=== PATIENT | female | born 1940 | race American Indian/Alaskan Native ===

== ENCOUNTER 2018-12-02 09:46 | Emergency (ER) | payer MEDICARE ==
[2018-12-02 09:51] VITALS: BP 190/73
[2018-12-02] MEDS ORDERED: DECADRON IM ONE (10:27)
[2018-12-02] MEDS ORDERED: TORADOL IM ONE (10:27)
--- NOTE | 2018-12-02 10:30 | Emergency Department Report ---
ED Neck Pain/Injury HPI - General Chief Complaint: Neck Pain/Injury Stated Complaint: NECK PAIN Time Seen by Provider: 12/02/18 10:12 Source: patient, family Mode of arrival: Ambulatory Limitations: No Limitations - History of Present Illness Complaint: neck pain - Related Data Previous Rx's Medication Instructions Recorded Last Taken Type traMADol [Ultram 50 MG tab] 50 mg PO Q6HR PRN #12 tablet 12/02/18 Unknown Rx Allergies Allergy/AdvReac Type Severity Reaction Status Date / Time codeine AdvReac Nausea Verified 12/02/18 09:48 ED Review of Systems ROS: Stated complaint: NECK PAIN Other details as noted in HPI ED Past Medical Hx - Past Medical History Hx Hypertension: Yes Hx Diabetes: Yes Additional medical history: anemia - Surgical History Additional Surgical History: knee, neck, hip - Social History Smoking Status: Never Smoker Substance Use Type: None - Medications Home Medications: Home Medications Medication Instructions Recorded Confirmed Last Taken Type traMADol [Ultram 50 MG tab] 50 mg PO Q6HR PRN #12 tablet 12/02/18 Unknown Rx ED Physical Exam - General Limitations: No Limitations ED Course Vital Signs 12/02/18 09:48 Temperature 98 F Pulse Rate 90 Respiratory 20 Rate Blood Pressure 190/73 O2 Sat by Pulse 98 Oximetry ED Medical Decision Making - Radiology Data Radiology results: report reviewed IMPRESSION: There is no acute cervical spine fracture or subluxation seen. Anterior bony fusion from C3 to T1. Marked facet arthropathy as well as marked degenerative change involving atlantoaxial articulations. This document is electronically signed by Ruth Garcia MD., December 02 2018 12:57:24 PM ET - Medical Decision Making This is a 71-year-old female here report that she has pain to her neck and history of bone spur and she woke up this morning and in she is having pain to her neck of the back and sides. Neck exam was normal with normal range of motion and no edema. Patient had CT scan of her C-spine without contrast and shows no acute findings. This is discussed with patient that she was understanding. I also discussed with her she is to follow-up with her primary care doctor to get referral to neurosurgeon regarding her chronic neck pain and she voiced understanding. Subacute fusion C3 to T1 and degeneration seen. IMPRESSION: There is no acute cervical spine fracture or subluxation seen. Anterior bony fusion from C3 to T1. Marked facet arthropathy as well as marked degenerative change involving atlantoaxial articulations. This document is electronically signed by Ruht Garcia MD., December 02 2018 12:57:24 PM ET Assessment/plan 1: Neck musculoskeletal pain with degenerative disc disease and C 3 to T1 fusion -patient was given Toradol and Decadron emergency room and her pain is not up to 2/10. patient to follow-up with with her primary care physician in 2 days or return to the hospital for symptoms worsen. She is aware and discharged home with her family member. Patient discharged home in stable condition with prescription for Ultram. - Differential Diagnosis FX, Subluxation, msk pain Critical care attestation.: If time is entered above; I have spent that time in minutes in the direct care of this critically ill patient, excluding procedure time. ED Disposition Clinical Impression: Fusion of spine, cervical region, Musculoskeletal neck pain Degenerative arthritis of cervical spine Qualifiers: Spinal osteoarthritis complication: without myelopathy or radiculopathy Qualified Code(s): M47.812 - Spondylosis without myelopathy or radiculopathy, cervical region Disposition: DC-01 TO HOME OR SELFCARE Is pt being admited?: No Does the pt Need Aspirin: No Condition: Stable Instructions: Musculoskeletal Pain (ED), Degenerative Disc Disease (ED) Additional Instructions: Follow-up the primary care physician and 2-3 days regarding neck pain. Take tramadol for pain but please do not drive or operate heavy machinery while taking this medication. If condition worsens that he developed numbness or tingling to upper extremity please return to the emergency room [facility] Referrals: YOUR, primary care physician [Other] - 3-5 Days Forms: Accompanied Note
--- NOTE | 2018-12-02 12:00 | Cat Scan Report ---
PROCEDURE: CT CERVICAL SPINE WO CON TECHNIQUE: CT of the cervical spine performed. Axial images and coronal and sagittal reformatted imag es were obtained. HISTORY: neck pain COMPARISON: None FINDINGS: There is surgical anterior fusion at C3-4. There is also some bony fusion of vertebrae from C3 to T1 including ossification along the anterior longitudinal ligament. There is no vertebral subluxation. There is marked narrowing of facet joints throughout the cervical spine, left worse than right. There is also marked narrowing and degenerative change of C1-2 articula tions. C3-4 left-sided uncovertebral spurring causes moderate neuroforaminal narrowing. Some posterior vertebral spurring/ossification causes mild spinal stenosis at C4-5 and C5-6. There is no acute fracture. IMPRESSION: There is no acute cervical spine fracture or subluxation seen. Anterior bony fusion from C3 to T1. Marked facet arthropathy as well as marked degenerative change in volving atlantoaxial articulations. This document is electronically signed by Ruth Garcia MD., December 02 2018 12:57:24 PM ET
== END 2018-12-02 12:41 | disposition home or self-care (01) ==
LOC: ED 09:46
DX: M43.22 Fusion of spine, cervical region (principal); M54.2 Cervicalgia; I10 Essential (primary) hypertension; E11.9 Type 2 diabetes mellitus without complications
CPT/HCPCS: 72125; 96372; 99283; J1100; J1885